=== PATIENT | male | born 1945 | race Caucasian/White ===

== ENCOUNTER 2025-06-14 22:24 | Inpatient (IN) | payer OTHER, SELFPAY ==
[2025-06-14 18:29] VITALS: BP 178/109
[2025-06-14 20:25] VITALS: BMI 29.2
[2025-06-14 20:26] VITALS: BP 168/99
[2025-06-14 20:38] LABS: Hematocrit 41.5 % (39.0-52.0); Hemoglobin 13.8 g/dL (13.0-18.0); Mean Corp Hgb Conc. 33.3 g/dL (33.0-37.0); Mean Corpuscular Volume 86.8 fL (80.0-94.0); Nucleated Red Blood Cells % 0 % (-); Platelet Count 216 10^3/uL (130-400); Red Cell Dist. Width 13.0 % (11.5-14.5)
[2025-06-14 20:54] LABS: ALT (SGPT) 35 U/L (0-50); AST (SGOT) 35 U/L (17-59); Albumin 4.4 g/dl (3.5-5.0); Alkaline Phosphatase 49 U/L (38-126); Blood Urea Nitrogen 22 mg/dl (9-20); Calcium 9.2 mg/dl (8.4-10.2); Carbon Dioxide 28 mmol/L (22-30); Chloride 104 mmol/L (98-107); Estimated Creatinine Clearance 62 ml/min; Glucose 98 mg/dl (70-99); Potassium 4.5 mmol/L (3.5-5.1); Sodium 138 mmol/L (135-145); Total Protein 7.6 g/dl (6.3-8.2); eGFR > 60.00
--- NOTE | 2025-06-14 21:03 | ED.GENMED ---
History of Present Illness
General
Chief Complaint: Skin Problem
Source: patient and spouse
Time Seen by Provider: 06/14/25 20:28
History of Present Illness
History of Present Illness:
79-year-old male presents to the emergency room complaining of pain, redness, swelling and open wound on his right hand. Patient began having redness and irritation to the area about 11 days ago. He had been doing some cleaning of brush in a yard
before that. The area began to become more red and swollen over the subsequent days. He went to his family doctor who prescribed Keflex. He did not have much improvement. About 3 to 4 days ago the pain was quite intense until he had spontaneous
drainage of pus from the wound. The pain has decreased significantly. However he has an open wound and his primary care doctor sent him to the emergency room for further evaluation. Patient denies any fever, chills, nausea or vomiting. Patient
is left-hand dominant.
Past History
Past History
ED Past Medical History: CAD, HTN, Hypercholesterolemia and Other (lung cancer,sleep apnea, diverticulosis, diverticulitis,prostatitis, pharynx, hypothyroidism)
ED Past Surgical History: Other (RLL lobectomy in 2007)
Social History
Personal:
Living: with family
Employment: Retired
Phy Exam
Physical Exam
Physical Exam:
General: Awake, Alert, Oriented X3. No acute distress.
Vitals: unremarkable
Head: Atraumatic
Eyes: Pupils equal, EOMI
Throat: Airway intact, no exudates
Neck: Trachea midline
Lungs: Clear and equal b/l
Heart: Regular rate, no murmurs
Neuro: Grossly nonfocal
Skin: Warm, dry, no rash
Right upper extremity: Dorsal surface over the proximal phalanx has a ulcerated wound with surrounding erythema, fluctuance. I was able to express a small amount of purulence with compression. There was some devitalized superficial skin which was
debrided from around the wound. Flexion is intact.
Course
Orders/Labs/Results
Orders:
Orders
06/14/25 20:28
Complete Blood Count/With Diff Urgent
Comprehensive Metabolic Panel Urgent
06/14/25 21:00
Hand, Right 3 View [CR Hand - Right Min 3 Views] Urgent
Comment:
Reason For Exam: pain, swelling
06/14/25 21:43
Vancomycin [Vancocin] 2,000 mg 0.9% Sodium Chloride 500 ml [Nss] 500 ml IV NOW
06/14/25 21:56
Wound Culture [Wound/Abscess/Other Culture] Urgent
PELON Source: Finger
Specimen Description: Right
Date Specimen was Collected: 06/14/25
Time Specimen was Collected: 21:45
06/14/25 22:00
Ampicillin/Sulbactam 3 G [Unasyn] 3 gm 0.9% Sodium Chloride 100 ml [Nss] 100 ml IV Q6H
06/14/25 22:09
Admit/Transfer Patient As Directed
Co-Sign Provider:
Level of Care: Inpatient admission
Assign to:: Medical/Surgical
Physician / Group: Ashley Patel
Diagnosis: ulcerating wound
Reason for Hospitalization: ulcerating wound
Expected length of stay greater than two midnights?: Yes
ELOS- Estimated Length of Stay in days: 3
I certify the patient meets the requirements for IP care: Yes
PRN Pain Medication Management As Directed
May give lesser potent ordered pain med per pt: Yes
preference::
Protocol:: Medication orders for pain may be administered in a
manner that supports deferring to patient preference
when the pt is:
- Requesting an ordered lesser potent pain medication.
Least to most potent pain medications are defined
as: acetaminophen < NSAID < tramadol < opioids
(morphine, oxycodone, hydromorphone).
- Requesting a lesser dose of the same medication IF
ORDERED.
- Requesting a less intrusive route of administration
if both routes are prescribed by the provider (PO <
IV).
06/14/25 22:10
Code Status As Directed
Resuscitation Status: Full Code
06/15/25 00:24
Acetaminophen [Tylenol] 650 mg PO Q4HPRN PRN
Bisacodyl [Dulcolax] 10 mg RECTAL [id number] PRN
Docusate W/Senna [Senokot-S] 1 tablet PO BIDPRN PRN
HYDROmorphone [Dilaudid] 0.5 mg IV Q4HPRN PRN
Ketorolac [Toradol] 10 mg IV Q6HPRN PRN
Polyethylene Glycol Powder [Miralax] 17 grams PO DAILYPRN PRN
VANCOMYCIN Pharmacy to Dose [VANCOCIN Pharmacy to Dose] 1 each Pharmacy To Prepare [Call Pharmacy To Prepare] 0 ml IV PER PROTOCOL
06/15/25 00:24
Consult Orthopedic [ORTHOPEDIC CONSULT] Routine
Consulting Provider: Angel Pringle
Was physician already notified: Yes
Activity As Directed
Activity Level: As Tolerated
Pneumatic Compression Sleeves As Directed
Type: Knee high
Vital Signs As Directed
Frequency: Per unit guidelines
DX Deep Vein Thrombosis Video Routine
06/15/25 Breakfast
NPO
Allow oral meds: Yes
Allow clear liquids: No
Basic Metabolic Panel IN AM
Complete Blood Count/With Diff IN AM
Magnesium IN AM
MR Right Up Ext Joint W/o W IN AM
Comment:
Reason For Exam: distal right 3rd digit wound
Recent pill cam endoscopy?: No
06/15/25 08:00
0.9% Sodium Chloride 1000 ml [Nss] 1,000 ml IV 80 mls/hr
Levothyroxine [Synthroid] 75 mcg PO DAILY
Losartan [Cozaar] 25 mg PO DAILY
Montelukast Sodium [Singulair] 10 mg PO DAILY
aspirin 81 mg PO DAILY
rosuvastatin [Crestor] 40 mg PO DAILY
06/15/25 Dinner
Regular
Abnormal Lab Results
06/14/25
20:28
Absolute Lymphs (auto) 0.9 L 10^3/uL
(1.2-3.4)
Lymphocytes % 15.6 L %
(20.5-51.1)
Monocytes % 11.2 H %
(1.7-9.3)
BUN 22 H mg/dl
(9-20)
06/14/25 20:28
06/14/25 20:28
Vital Signs
Initial and Last Documented VS:
Initial Vital Signs
Temp Pulse Resp BP Pulse Ox
98.1 F 110 20 178/109 95
06/14/25 18:29 06/14/25 18:29 06/14/25 18:29 06/14/25 18:29 06/14/25 18:29
Last Documented Vital Signs
Temp Pulse Resp BP Pulse Ox
98.1 F 110 20 165/94 96
06/14/25 18:29 06/14/25 18:29 06/14/25 18:29 06/15/25 00:00 06/15/25 00:00
MDM/Problems Addressed
Differential Diagnosis Includes:
Residual abscess cellulitis, osteomyelitis
MDM/Problems Addressed:
Patient presents to the emergency room with a fairly significant wound of the right middle finger. He had spontaneous drainage at home. I probed the wound is able to express further purulence. I also debrided some devitalized skin around the
edges of the wound. I communicated with hand surgery who recommends hospitalization for MRI and debridement of the wound.
*Radiology
Radiology exam reviewed: preliminary read by ED provider (No foreign body noted on my review of the patient's hand x-ray)
*Pulse Oximetry
SaO2: 96
Oxygen Mode of Delivery: Room air
Patient hypoxic: no
*Critical Care Note
Total Time (30-74mins, 75-104mins- exclusive of procedures): Not Applicable
ED Attending Note
-
Portions of this chart may have been created with voice recognition software.� Occasional wrong word or��sound alike� substitutions may have occurred due to the inherent limitations of voice recognition software.
Discharge Plan
Departure
Patient Disposition: Admit
Date of Disposition: 06/14/25
Time of Disposition: 21:21
Presentation/result/management discussed w/ accepting MD/DO: Hospitalist
Condition: Fair
Discharge Problem:
Abscess of middle finger, Cellulitis of middle finger
Interventions
Interventions:
*Risk Screen - Suicide Last Done: 06/14/25 18:29
*General Assessment Last Done: 06/14/25 20:16
*Neglect/Abuse Screening Last Done: 06/14/25 18:29
*ED- Fall Risk Assessment Last Done: 06/14/25 20:16
*ED COVID-19 Vaccine History Last Done: 06/14/25 20:16
*ED Influenza Vaccine History Last Done: 06/14/25 20:16
*Nursing Disposition Last Done: 06/15/25 00:15
ED-Skin Assessment Last Done: 06/14/25 20:16
Discharge Date and Time
Discharge Date/Time: 06/15/25 00:15
--- NOTE | 2025-06-14 21:35 | HPS.HSE ---
Family Physician
-
Family Physician: Brad Polanco
Chief Complaint
-
right middle finger infection
History of Present Illness
Mr. Harish Ni is a 79 yo man with hx CAD, HTN, HLD, hypothyroidism, lung cancer s/p RLL lobectomy 2007, JANET presents to the ER with pain, swelling and open wound on his right hand.
Patient was cleaning his yard 11 days ago when noticed redness and irritation to area. It became more red and swollen over the next several days and he was prescribed Keflex by PCP. Pain continued to progress and he noticed spontaneous drainage of
pus from the wound 3-4 days ago. He was then sent to the ER from his PCP.
Patient currently denies pain, he states it was much relieved when starting draining. No fevers/chills.
No chest pain or shortness of breath. No abdominal pain. No nausea/vomiting. No LE swellign
Medical History
Past Medical History
Past Medical History: Reports Other ( CAD, HTN, HLD, hypothyroidism, lung cancer s/p RLL lobectomy 2007, JANET)
Past Surgical History: Reports Other
Social History
Tobacco: Non-smoker
Alcohol: Occasional
Family History
Family History: Not pertinent
Allergies / Home Medications
Allergies reflects when Allergies were last updated in [facility].
Home Medications with original date entered in [facility]
Allergy/Medication List:
Allergies
Allergy/AdvReac Type Severity Reaction Status Date / Time
No Known Allergies Allergy Verified 06/14/25 18:29
Home Medications
aspirin 81 mg tablet 81 mg PO DAILY 06/14/25
levothyroxine 75 mcg tablet (Levoxyl) 75 mcg PO DAILY 06/14/25
losartan 25 mg tablet 25 mg PO DAILY 06/14/25
montelukast 10 mg tablet (Singulair) 10 mg PO DAILY 06/14/25
rosuvastatin 40 mg tablet (Crestor) 40 mg PO DAILY 06/14/25
Review of Systems
-
History Source: Patient
A 12 point ROS was completed and negative except as noted: Yes
Physical Exam
Vital Signs
Vital Signs
Temp Pulse Resp BP Pulse Ox
98.1 F 110 20 168/99 96
06/14/25 18:29 06/14/25 18:29 06/14/25 18:29 06/14/25 20:26 06/14/25 21:06
Physical Exam
General: No Apparent Distress
HEENT: PERRLA
Respiratory: Clear; No Wheezes
Cardiac: S1/S2 and Regular Rhythm
GI: Soft and Non Tender
Musculoskeletal: No Edema and Other (right hand wrapped; photo with ulcerating wound base 3rd digit surrounded by erythema)
Skin: Warm and Dry; No Rash
Neuro: AO x 3
Psych: Calm
Laboratory Results
-
06/14/25 20:28
06/14/25 20:28
Laboratory Results
Total Bilirubin 0.5 mg/dl (0.2-1.3) 06/14/25 20:28
AST 35 U/L (17-59) 06/14/25 20:28
ALT 35 U/L (0-50) 06/14/25 20:28
Alkaline Phosphatase 49 U/L (38-126) 06/14/25 20:28
Data Reviewed
-
Diagnostic Radiology: Report Reviewed by me
Lab Data: Labs Reviewed by me
Impression/Plan
-
Mr. Harish Ni is a 79 yo man with hx CAD, HTN, HLD, hypothyroidism, lung cancer s/p RLL lobectomy 2007, JANET presents to the ER with pain, swelling and open wound on his right hand.
Triage VS: T 98.1, P 110, RR 20, BP 170/109, SpO2 95%
LABS: WBC 5.6, Hg 13.8, PLT 216, Na 138, K+ 4.5, CO2 28, BUN 22, Cr 1.0, Glucose 98, liver enzymes WNL
MAR: IV Vancomycin
Wound on right 3rd digit
-admit to med/surg
-patient did not improved on outpatient oral antibiotics, meets inpatient criteria
-case discussed with Dr. Pringle and Himanshu by ER attending, consult in for AM
-MR right hand with/ without in AM
-IV Vanc/Unasyn
-follow up cultures taken in ER
-NPO after MN, unclear timing of debridement
HLD - CELLOPHANE TESTER Statin
Hypothyroidism - CELLOPHANE TESTER Synthroid
Essential HTN - CELLOPHANE TESTER Losartan
DVT PPx SCD
FULL CODE
[2025-06-14] MEDS: VANCOCIN 540 MG IV (22:01)
[2025-06-14 22:04] VITALS: BP 165/98
[2025-06-15] VITALS (13 sets, daily range): BP systolic 137–172; BP diastolic 77–104; BMI 27.7
[2025-06-15] MEDS: UNASYN IV ×5 (00:37→21:36)
[2025-06-15] MEDS: SYNTHROID 75 MCG PO (06:04)
--- NOTE | 2025-06-15 07:51 | W.PN.HOSP.TC ---
Addendum entered and electronically signed by Evin Khan MD 06/15/25 13:44:
Seen and examined the patient with the resident. Agree with plan formulated. See changes in my documentation
79-year-old male with middle finger ulceration. He was cleaning his yard 11 days ago and noticed redness and irritation became more swollen later. Was prescribed Keflex but it continued to progress and there was drainage 3 to 4 days ago.
X-ray of the hand-soft tissue swelling
Right third digit dorsal area with 2 separate areas of ulceration mild edema, patient cannot flex that finger. Complete extension noted
# Ulceration of the third digit on the right hand
Failed outpatient treatment
MRI of the hand -NO OM, has possible FB
Continue IV antibiotics currently on vancomycin and Unasyn
Follow-up cultures
Possibly needs OR
Orthopedics consulted
For possible OR today
# Hypothyroidism-continue levothyroxine
# Hyperlipidemia-continue statin
# Hypertension-continue losartan
# History of lung cancer with history of right lower lobectomy in the past-followed with [facility]
# Sleep apnea
# Diverticulosis
# History of melanoma
# DVT prophylaxis-Lovenox
# Full code
Part of this note was created using voice recognition system. Occasional wrong word or��sound alike� substitutions may have inadvertently occurred due to the inherent limitations of voice recognition software. If noted kindly bring it to my
attention for correction.
Original Note:
Today's Communication/Plan
-
Tetanus shot today
Continue antibiotics
Follow cultures
Assessment / Plan
Assessment / Plan
Wound on right 3rd digit
Right Third Digit Wound Of Unknown Origin
-Patient with wound of the right third digit approximately 2 inches in length with associated erythema and edema of the joint, two separate 1cm areas of drainage of pus and blood
-Patient had taken Keflex outpatient without improvement
-X-ray on admission: Soft tissue swelling. No evidence for soft tissue air. No evidence for radiopaque foreign body. No evidence for bony destruction, with no findings to suggest osteomyelitis.
-MRI today: Soft tissue wound of the dorsal proximal third finger with surrounding cellulitis. No MRI evidence for osteomyelitis or septic arthritis. Tiny presumed foreign body with susceptibility artifact in the dorsal soft tissues of the third
finger at the level of the proximal interphalangeal joint.
-Limited flexion noted on physical exam
-Continue IV Vancomycin, IV Unasyn
-Continue to follow cultures
-Orthopedics is following, will appreciate their insight into his case. Spoke to the via TT based on results of MRI. Patient will be kept NPO with likely visit to OR today.
-Ordered Tetanus shot today
-Will monitor
Coronary artery disease
Hyperlipidemia
-Continue Statin therapy
Essential Hypertension
-Continue Losartan
-Monitor blood pressures over the day. If his BP remains high, consider PRN IV Hydralazine for SBP >160
-Will monitor
Hypothyroidism
-Continue home dose of Synthroid
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
-Follows with [facility]
Obstructive sleep apnea
Anticipated Discharge: 24 - 48 hours
Subjective/Interval History
-
Date of Service: June 15, 2025
Patient was sitting comfortably in his bed when I arrived. He believes that his wound might be the result of a spider bite, as it had started as two small black dots on his hand. He has not had any pain since it began to weep pus and blood a few
days prior. He does not remember the exact date of his last tetanus shot, but when informed the last record we have in 2005, he stated, 'That sounds right.'
Objective Data
-
Labs:
Laboratory Results
06/14/25 06/15/25
20:28 07:37
WBC 5.6 Pending
Hgb 13.8 Pending
Hct 41.5 Pending
Plt Count 216 Pending
Sodium 138 Pending
Potassium 4.5 Pending
Chloride 104 Pending
Carbon Dioxide 28 Pending
BUN 22 H Pending
Creatinine 1.0 Pending
Glucose 98 Pending
Calcium 9.2 Pending
Total Bilirubin 0.5
AST 35
ALT 35
Alkaline Phosphatase 49
Vital Signs:
Vital Signs
Temp Pulse Resp BP Pulse Ox
97.6 F 109 12 172/104 95
06/15/25 00:10 06/15/25 00:10 06/15/25 00:10 06/15/25 00:10 06/15/25 00:10
I&O
06/14/25 06/15/25 06/16/25
06:59 06:59 06:59
Intake Total 240 / 240
Balance 240 / 240
Review of Systems
-
History Source: Patient
Constitutional: Denies Fever, Chills or Weakness
Respiratory: Denies Cough or Trouble Breathing
Cardiac: Denies Chest Pain or Palpitations
Abdomen/GI: Denies Abdominal Pain, Nausea, Vomiting, Diarrhea or Constipated
Musculoskeletal: Reports Joint Swelling (Right hand); Denies Joint Pain or Muscle Pain
Skin: Reports Other (Lesion of right hand over the middle finger, no other lesions); Denies Itching
Neuro: Denies Dizzy, Headache, Weakness or Numbness
Physical Exam
-
General: Well Developed, Well Nourished, No Apparent Distress and Comfortable
HEENT: Normocephalic and Atraumatic
Respiratory: Clear to Auscultation
Cardiac: Regular Rhythm and S1/S2
Musculoskeletal: Other (Limited flexion of right middle finger when compared to the left and surrounding fingers. No significant impairment of extension)
Skin: Warm, Dry and Lesions (There is an area of erythema overlying the right middle finger near the base of the finger and extending up into the digit. There are two areas approximately 1cm each of drainage of pus and blood. There is some
associated skin dryness near the borders of this ulcerating lesion with peeling skin.)
Neuro: Awake, Alert and Oriented
Psych: Calm
[2025-06-15 08:16] LABS: Hematocrit 39.5 % (39.0-52.0); Hemoglobin 13.3 g/dL (13.0-18.0); Mean Corp Hgb Conc. 33.7 g/dL (33.0-37.0); Mean Corpuscular Volume 87.8 fL (80.0-94.0); Nucleated Red Blood Cells % 0 % (-); Platelet Count 218 10^3/uL (130-400); Red Cell Dist. Width 12.9 % (11.5-14.5)
--- NOTE | 2025-06-15 09:10 | W.PN.UPDATE ---
Update Note
Progress Note Update
Full H&P to follow
79-year-old male admitted for chronic ulceration of the dorsal aspect overlying his middle finger recommended for inpatient admission for consideration of IV antibiotics and operative debridement. X-rays were performed without any significant
osseous abnormality suggest ongoing osteomyelitis. Patient reports slight improvement of his symptoms today.
Recommended MRI which is pending today for evaluation of possible osteomyelitis and any surgical decompression that may be recommended. Cultures were obtained in the ER.
Pending MRI results for further consideration of operative invention if necessary versus broad-spectrum antibiotics pending cultures and possible wound care consult. Will continue to follow pending MRI results
Unlikely for OR today- may have diet, NPO @ MN potentially for OR tomorrow
[2025-06-15 09:12] LABS: Blood Urea Nitrogen 17 mg/dl (9-20); Calcium 8.9 mg/dl (8.4-10.2); Carbon Dioxide 23 mmol/L (22-30); Chloride 105 mmol/L (98-107); Estimated Creatinine Clearance 91 ml/min; Glucose 92 mg/dl (70-99); Magnesium 2.1 mg/dl (1.6-2.3); Potassium 4.2 mmol/L (3.5-5.1); Sodium 137 mmol/L (135-145); eGFR > 60.00
--- NOTE | 2025-06-15 09:16 | PHA.VAN.IN ---
Assessment
- Assessment
Renal Function: Appears similar to baseline
Maximum Temperature: 98.2F
Minimum Temperature: 97.6F
Concomitant Antimicrobials: Unasyn
AUC Dosing Plan
- Dosing Variables
Dosing Weight (kg): 92.7
Dosing CrCl (ml/min): 91
Vd coefficient (L/kg): 0.7
- Empiric Dosing
Initial / Loading Dose: 2000MG
Maintenance Regimen: 1250MG Q12H
Estimated AUC (mcg*h/mL): 511
Estimated Peak (mcg*h/mL): 31.2
Estimated Trough (mcg/ml): 13.5
Estimated Half Life (H): 8.7
- Monitoring
No levels ordered at this time: Awaiting steady state
Pharmacokinetics Vancomycin I
- -
Patient Age: 79
Patient Sex: Male
Vancomycin Day #: 2
Indication: Skin And Soft Tissue
Requesting Provider: Jorge
Pertinent Antimicrobial Allergies:
NKDA
Height / Weight:
Height 6 ft
Actual Weight 92.714 kg
Pertinent Past Medical History: Keflex failure
- Vital Signs / Lab Results
Temp Pulse Resp BP Pulse Ox
98.2 F 98 16 167/103 93
06/15/25 07:00 06/15/25 07:00 06/15/25 07:00 06/15/25 07:00 06/15/25 07:00
Lab Results - Hematology
06/14/25 06/15/25
20:28 07:37
WBC 5.6 5.2
Lab Results - Chemistry
06/14/25 06/15/25
20:28 07:37
BUN 22 H 17
Creatinine 1.0 0.7
Estimated Creat Clear 62 91
Albumin 4.4
[2025-06-15] MEDS: ASPIR LOW (ENTERIC COATED) 81 MG PO (10:23)
[2025-06-15] MEDS: SINGULAIR 10 MG PO (10:23)
[2025-06-15] MEDS: CRESTOR 40 MG PO (10:23)
[2025-06-15] MEDS: COZAAR 25 MG PO (10:26)
[2025-06-15] MEDS: NSS 1000 IV ×2 (10:26→19:56)
[2025-06-15] MEDS: VANCOCIN 275 MG IV ×2 (11:49→19:55)
[2025-06-15] MEDS: ADACEL 0.5 ML IM (13:07)
--- NOTE | 2025-06-15 18:27 | W.IMMPOSTOP ---
Surgical Immed Post Op Note
-
Primary Surgeon: Yary
Pre-op Diagnosis: Right hand infection
Post-op Diagnosis: Same
Procedure Performed: Right hand incision and excisional debridement
Anesthesia Type: General
Specimen / Cultures: Right hand purulence
Estimated Blood Loss: 2cc
Complications: None
Operative Findings: Dictate
Plan:
- Continue with IV abx
- Follow culture results
- Remove packing in 2-3 days
[2025-06-15] MEDS: DILAUDID 0.25 MG IV (19:02)
[2025-06-15] MEDS: LOVENOX 40 MG SC (19:49)
--- NOTE | 2025-06-15 20:39 | CON.ORTHO ---
Consultation
-
Date/Time Consultation Requested: 06/15/2025 0024
Date/Time Consultation Performed: 06/15/2025 0745
Requesting Provider: Dr. Ashley Patel
Performing Provider: DURGA Odell, Dr. Angel Pringle
Reason for Consultation: Right hand wound/infection
Consultation - Orthopedics
History
79-year-old [id number] male presenting to [facility] emergency room with pain and swelling and open wound about his dorsum of his right hand. Symptoms began approximately 12 days ago when he noticed redness and irritation after doing yard
work. His symptoms progressively worsened and refractory towards outpatient antibiotics when he started to develop spontaneous drainage and purulence several days ago. He reports pain is relatively tolerable at this timeframe, denies any
associated paresthesias or fevers or chills
Allergies / Home Medications
Past Medical History
Past Medical History: Reports Other ( CAD, HTN, HLD, hypothyroidism, lung cancer s/p RLL lobectomy 2007, JANET)
Past Surgical History: Reports Other
Social History
Tobacco: Non-smoker
Alcohol: Occasional
Family History
Family History: Not pertinent
Allergy/AdvReac Type Severity Reaction Status Date / Time
No Known Allergies Allergy Verified 06/14/25 18:29
�Medication �Instructions �Recorded
aspirin 81 mg tablet 81 mg PO DAILY Blood Clot 06/14/25
Prevention/Tx
levothyroxine 75 mcg tablet 75 mcg PO DAILY Thyroid 06/14/25
(Levoxyl)
losartan 25 mg tablet 25 mg PO DAILY Blood Pressure 06/14/25
montelukast 10 mg tablet 10 mg PO DAILY ASTHMA 06/14/25
(Singulair)
rosuvastatin 40 mg tablet (Crestor) 40 mg PO DAILY High Cholesterol 06/14/25
Vital Signs / Lab Results
Temp Pulse Resp BP Pulse Ox
97 F 93 15 165/94 98
06/15/25 19:10 10/08/25 19:38 06/15/25 19:15 06/15/25 19:38 06/15/25 19:38
PHYSICAL EXAM: Focused examination of the right upper extremity at the level of the hand shows extensive superficial wound without exposed deep tissue overlying the middle MP slightly distal from the joint and overlying the proximal aspect of the
proximal phalanx. There is surrounding eschar and friable skin edges with erythematous surrounding skin. There is no specific effusion of the MP or PIP joint and erythema is limited proximal to the PIP joint.. No pain with gentle passive range of
motion. Distal sensation and motor function intact.
IMAGING: X-rays taken of the right hand showed mild soft tissue swelling to the dorsum of the middle finger proximally. No soft tissue air. No foreign bodies. No evidence of osteomyelitis. Mild chronic degenerative changes
MRI completed of the right upper extremity shows soft tissue wound slightly distal of the middle MP joint with questionable possible foreign body to the dorsum of the soft tissues close to the PIP joint.
06/15/25 07:37
06/15/25 07:37
Cultures obtained the emergency room show few gram-positive cocci but potentially polymicrobial from superficial collection.
Assessment / Plan
79-year-old male with nearly 2 weeks of superficial infection overlying the dorsum of the middle MP joint refractory towards outpatient antibiotics and progressing of symptoms with unremarkable radiographs and MRI concerning for possible associated
foreign body
- At time of MRI completion patient was recommended for operative intervention either today versus tomorrow pending OR availability; patient was n.p.o. today. Plan for surgery on 06/15/2025 for right hand wound debridement irrigation Dr. Pringle and
possible removal of foreign body
[2025-06-16] MEDS: TYLENOL 650 MG PO ×3 (03:01→19:34)
[2025-06-16] MEDS: UNASYN IV ×4 (03:48→21:58)
[2025-06-16] MEDS: SYNTHROID 75 MCG PO (05:34)
[2025-06-16] MEDS: VANCOCIN 275 MG IV ×2 (05:35→18:11)
[2025-06-16 06:00] LABS: Hematocrit 39.8 % (39.0-52.0); Hemoglobin 13.3 g/dL (13.0-18.0); Mean Corp Hgb Conc. 33.4 g/dL (33.0-37.0); Mean Corpuscular Volume 86.9 fL (80.0-94.0); Platelet Count 216 10^3/uL (130-400); Red Cell Dist. Width 12.9 % (11.5-14.5)
[2025-06-16 07:06] LABS: Blood Urea Nitrogen 17 mg/dl (9-20); Calcium 8.6 mg/dl (8.4-10.2); Carbon Dioxide 26 mmol/L (22-30); Chloride 104 mmol/L (98-107); Estimated Creatinine Clearance 69 ml/min; Glucose 134 mg/dl (70-99); Potassium 4.5 mmol/L (3.5-5.1); Sodium 138 mmol/L (135-145); eGFR > 60.00
--- NOTE | 2025-06-16 07:16 | W.PN.HOSP.TC ---
Addendum entered and electronically signed by Evin Khan MD 06/16/25 14:14:
Seen and examined the patient with the resident. Agree with plan formulated. See changes in my documentation
79-year-old male with middle finger ulceration. He was cleaning his yard 11 days ago and noticed redness and irritation became more swollen later. Was prescribed Keflex but it continued to progress and there was drainage 3 to 4 days ago.
X-ray of the hand-soft tissue swelling
Right hand bandaged POst op
Other exam normal
# Ulceration of the third digit on the right hand
Failed outpatient treatment
MRI of the hand -NO OM, has possible FB
Right hand incision and excisional debridement. 06/15/2025
Continue IV antibiotics currently on vancomycin and Unasyn
Follow-up OR cultures
Wound CX with MRSA
# Hypothyroidism-continue levothyroxine
# Hyperlipidemia-continue statin
# Hypertension-continue losartan
# History of lung cancer with history of right lower lobectomy in the past-followed with [facility]
# Sleep apnea
# Diverticulosis
# History of melanoma
# DVT prophylaxis-Lovenox
# Full code
Part of this note was created using voice recognition system. Occasional wrong word or��sound alike� substitutions may have inadvertently occurred due to the inherent limitations of voice recognition software. If noted kindly bring it to my
attention for correction.
Original Note:
Today's Communication/Plan
-
Continue to follow cultures
Move to private room as culture preliminary positive for MRSA
Assessment / Plan
Assessment / Plan
Wound on right 3rd digit
Right Third Digit Wound Of Unknown Origin
Presumptive MRSA Infection
-Patient with wound of the right third digit approximately 2 inches in length with associated erythema and edema of the joint, two separate 1cm areas of drainage of pus and blood
-Patient had taken Keflex outpatient without improvement
-X-ray on admission: Soft tissue swelling. No evidence for soft tissue air. No evidence for radiopaque foreign body. No evidence for bony destruction, with no findings to suggest osteomyelitis.
-MRI 06/15: Soft tissue wound of the dorsal proximal third finger with surrounding cellulitis. No MRI evidence for osteomyelitis or septic arthritis. Tiny presumed foreign body with susceptibility artifact in the dorsal soft tissues of the third
finger at the level of the proximal interphalangeal joint.
-S/p Tetanus shot on 06/15
-Patient was taken to the OR on 06/[address] Pringle, Post op day 1 today. Wound culture preliminary positive for MRSA
-Limited flexion noted on physical exam from 06/15, currently hand is bandaged any cannot assess movement
-Continue IV Vancomycin, IV Unasyn
-Continue to follow cultures, will follow for sensitivity on positive MRSA culture
-Will monitor
Coronary artery disease
Hyperlipidemia
-Continue Statin therapy
Essential Hypertension
-Continue Losartan
-Monitor blood pressures over the day. If his BP remains high, consider PRN IV Hydralazine for SBP >160
-Will monitor
Hypothyroidism
-Continue home dose of Synthroid
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
-Follows with [facility]
Obstructive sleep apnea
Anticipated Discharge: 24 - 48 hours
Subjective/Interval History
-
Date of Service: June 16, 2025
Patient was sitting comfortably in his bed when I arrived. He states he has had more pain post operatively than he did preoperatively, but it is 'as he expected' and manageable. He has no fevers, chills, chest pain, shortness of breath. He is
overall in good spirits today with no concerns.
Objective Data
-
Labs:
Laboratory Results
06/16/25
05:34
WBC 7.7
Hgb 13.3
Hct 39.8
Plt Count 216
Sodium 138
Potassium 4.5
Chloride 104
Carbon Dioxide 26
BUN 17
Creatinine 0.9
Glucose 134 H
Calcium 8.6
Vital Signs:
Vital Signs
Temp Pulse Resp BP Pulse Ox
97.6 F 102 16 148/86 97
06/15/25 23:00 06/15/25 23:00 06/15/25 23:00 06/15/25 23:00 06/15/25 23:00
I&O
06/15/25 06/16/25 06/17/25
06:59 06:59 06:59
Intake Total 240 / 240 1208 / 1208
Output Total 673 / 673
Balance 240 / 240 535 / 535
Review of Systems
-
History Source: Patient
Constitutional: Denies Fever, Fatigue or Chills
Respiratory: Denies Cough or Trouble Breathing
Cardiac: Denies Chest Pain or Palpitations
Abdomen/GI: Denies Abdominal Pain, Nausea, Vomiting, Diarrhea or Constipated
Musculoskeletal: Reports Joint Pain (See HPI) and Muscle Pain (See HPI)
Physical Exam
-
General: Well Developed, Well Nourished, No Apparent Distress and Comfortable
HEENT: Normocephalic and Atraumatic
Respiratory: Clear to Auscultation
Cardiac: Regular Rhythm and S1/S2
Skin: Warm, Dry and Other (The right hand is wrapped in a large ac bandage from the fingers to the forearm. It is clean and free of blood)
Neuro: Awake, Alert and Oriented
Psych: Calm
--- NOTE | 2025-06-16 07:47 | W.PN.UPDATE ---
Update Note
Progress Note Update
The patient was seen and examined by Orthopedic surgery on rounds. POD #1 RIGHT hand incision and excisional debridement performed on 06/15/[address] Pringle. Continue with IV antibiotics; currently on Vancomycin and Unasyn. Will
remove packing on Friday. Pre-operative preliminary Gram stain with few gram-positive cocci. Intra-operative cultures pending, continue to follow. Orthopedic surgery will continue to follow along.
[2025-06-16 08:05] VITALS: BP 147/89
[2025-06-16] MEDS: SINGULAIR 10 MG PO (08:19)
[2025-06-16] MEDS: ASPIR LOW (ENTERIC COATED) 81 MG PO (08:19)
[2025-06-16] MEDS: CRESTOR 40 MG PO (08:19)
--- NOTE | 2025-06-16 09:20 | PHA.VAN.FU ---
Vancomycin Assessment / Plan
- Assessment
Renal Function: Stable
WBC's are: WNL
In the past 24 hrs, patient has been: Afebrile
Concomitant Antimicrobials: ampicillin/sulbactam
- Dosing Plan
Continue: Vanc 1250mg Q12H
- Monitoring Plan
No level(s) ordered at this time: consider levels in next few days
- Follow Up
Pharmacy will continue to follow.
Vancomycin Follow UP
- -
Patient Age: 79
Patient Sex: Male
Vancomycin Day #: 3
Indication: Skin And Soft Tissue
Requesting Provider: Dr. Patel
Pertinent Antimicrobial Allergies:
NKDA
Height / Weight:
Height 6 ft
Actual Weight 92.714 kg
Pertinent Past Medical History: BMI 28
- Vital Signs / Lab Results
Temp Pulse Resp BP Pulse Ox
98 F 98 14 147/89 97
06/16/25 08:05 06/16/25 08:05 06/16/25 08:05 06/16/25 08:05 06/16/25 08:05
Lab Results - Hematology
06/14/25 06/15/25 06/16/25
20:28 07:37 05:34
WBC 5.6 5.2 7.7
Lab Results - Chemistry
06/14/25 06/15/25 06/16/25
20:28 07:37 05:34
BUN 22 H 17 17
Creatinine 1.0 0.7 0.9
Estimated Creat Clear 62 91 69
Albumin 4.4
Microbiology Results
06/14/25 21:56 Gram Stain - Preliminary
Finger - Right
[2025-06-16 11:07] VITALS: BP 143/91
[2025-06-16] MEDS: NSS IV (11:12)
[2025-06-16] MEDS: COZAAR 25 MG PO (11:16)
--- NOTE | 2025-06-16 14:10 | PTCARENOTE ---
Patient with + MRSA results from L hand 3rd finger wound. Moved to room 331 aware.
[2025-06-16 15:24] VITALS: BP 138/71
--- NOTE | 2025-06-16 16:41 | CM ---
Pt admitted with infected finger; R hand I&D yesterday. Currently on IV abx, +MRSA; packing to be removed tomorrow.
Anticipate discharge to home when medically stable, watch for VN needs.
Pt lives with his ; reports being (I) amb and adls.
Plan: Discharge to home; watch for IV abx needs at discharge.
[2025-06-16] MEDS: LOVENOX 40 MG SC (18:11)
[2025-06-16] MEDS: TORADOL 10 MG IV (22:42)
[2025-06-16 23:00] VITALS: BP 132/73
[2025-06-17] MEDS: UNASYN IV ×2 (03:10→09:15)
[2025-06-17] MEDS: VANCOCIN 275 MG IV (05:12)
[2025-06-17] MEDS: SYNTHROID 75 MCG PO (05:12)
[2025-06-17 06:33] LABS: Hematocrit 38.1 % (39.0-52.0); Hemoglobin 12.5 g/dL (13.0-18.0); Mean Corp Hgb Conc. 32.8 g/dL (33.0-37.0); Mean Corpuscular Volume 90.7 fL (80.0-94.0); Platelet Count 215 10^3/uL (130-400); Red Cell Dist. Width 13.1 % (11.5-14.5)
[2025-06-17 07:00] LABS: Blood Urea Nitrogen 19 mg/dl (9-20); Calcium 8.3 mg/dl (8.4-10.2); Carbon Dioxide 29 mmol/L (22-30); Chloride 107 mmol/L (98-107); Estimated Creatinine Clearance 69 ml/min; Glucose 116 mg/dl (70-99); Potassium 4.2 mmol/L (3.5-5.1); Sodium 140 mmol/L (135-145); eGFR > 60.00
--- NOTE | 2025-06-17 07:16 | W.PN.HOSP.TC ---
Addendum entered and electronically signed by Evin Khan MD 06/17/25 13:47:
Seen and examined the patient with the resident. Agree with plan formulated. See changes in my documentation
79-year-old male with middle finger ulceration. He was cleaning his yard 11 days ago and noticed redness and irritation became more swollen later. Was prescribed Keflex but it continued to progress and there was drainage 3 to 4 days ago.
X-ray of the hand-soft tissue swelling
Right hand sutures noted. No discharge or redness hand movements are better
Cardiovascular system S1-S2 appreciated
Chest clear to auscultation
# Ulceration of the third digit on the right hand
Failed outpatient treatment
MRI of the hand -NO OM, has possible FB
Right hand incision and excisional debridement. 06/15/2025
Got vancomycin earlier today
Cultures with MRSA sensitive to doxycycline
We will do 10 more days of doxycycline at discharge PELON less than 4
OR cultures also with MRSA
Discussed with orthopedics. They are okay with discharging patient today
# Hypothyroidism-continue levothyroxine
# Hyperlipidemia-continue statin
# Hypertension-continue losartan
# History of lung cancer with history of right lower lobectomy in the past-followed with [facility]
# Sleep apnea
# Diverticulosis
# History of melanoma
# DVT prophylaxis-Lovenox
# Full code
Discussed with orthopedics
Called and updated regarding outpatient follow-up needs.
I have consulted case management for visiting nurse but looks like family may want to take him to the appointments and not get a visiting nurse.
We will add wound care according to orthopedics resident to reach out
Total discharge time over 30 minutes
Part of this note was created using voice recognition system. Occasional wrong word or��sound alike� substitutions may have inadvertently occurred due to the inherent limitations of voice recognition software. If noted kindly bring it to my
attention for correction.
Original Note:
Today's Communication/Plan
-
Continue to follow cultures
Continue wound care
Discharge planning
Assessment / Plan
Assessment / Plan
Wound on right 3rd digit
Right Third Digit Wound with MRSA Infection
-Patient with wound of the right third digit approximately 2 inches in length with associated erythema and edema of the joint, two separate 1cm areas of drainage of pus and blood
-Patient had taken Keflex outpatient without improvement
-X-ray on admission: Soft tissue swelling. No evidence for soft tissue air. No evidence for radiopaque foreign body. No evidence for bony destruction, with no findings to suggest osteomyelitis.
-MRI 06/15: Soft tissue wound of the dorsal proximal third finger with surrounding cellulitis. No MRI evidence for osteomyelitis or septic arthritis. Tiny presumed foreign body with susceptibility artifact in the dorsal soft tissues of the third
finger at the level of the proximal interphalangeal joint.
-S/p Tetanus shot on 06/15
-Patient was taken to the OR on 06/[address] Pringle, Post op day 2 today. Wound culture positive for MRSA, sensitive for Doxycycline
-Limited flexion noted on physical exam from 06/15, currently hand is bandaged any cannot assess movement.
-Continue IV Vancomycin, plan to transition to PO Doxycycline 100mg BID for 10 additional days
-STOP IV Unasyn
-Will monitor
Coronary artery disease
Hyperlipidemia
-Continue Statin therapy
Essential Hypertension
-Continue Losartan
-Monitor blood pressures over the day. If his BP remains high, consider PRN IV Hydralazine for SBP >160
-Will monitor
Hypothyroidism
-Continue home dose of Synthroid
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
-Follows with [facility]
Obstructive sleep apnea
-Encouraged outpatient follow up
Anticipated Discharge: Within 24 hours
Subjective/Interval History
-
Date of Service: June 17, 2025
Patient was resting comfortably in his bed when I arrived. He states that his wound packing was removed earlier today, and that his hand is in less pain than it was yesterday. He continues to be free of fevers and chills. The swelling in his joint
has significantly reduced since yesterday.
Objective Data
-
Labs:
Laboratory Results
06/17/25
06:06
WBC 10.0
Hgb 12.5 L
Hct 38.1 L
Plt Count 215
Sodium 140
Potassium 4.2
Chloride 107
Carbon Dioxide 29
BUN 19
Creatinine 0.9
Glucose 116 H
Calcium 8.3 L
Vital Signs:
Vital Signs
Temp Pulse Resp BP Pulse Ox
97.9 F 102 18 132/73 97
06/16/25 23:00 06/16/25 23:00 06/16/25 23:00 06/16/25 23:00 06/16/25 23:00
I&O
06/16/25 06/17/25 06/18/25
06:59 06:59 06:59
Intake Total 1208 / 1208
Output Total 673 / 673
Balance 535 / 535
Review of Systems
-
History Source: Patient
Constitutional: Denies Fever, Fatigue or Chills
Respiratory: Denies Cough or Trouble Breathing
Cardiac: Denies Chest Pain
Abdomen/GI: Denies Abdominal Pain, Nausea, Vomiting, Diarrhea or Constipated
Musculoskeletal: Reports Joint Swelling (Reduced compared to yesterday)
Physical Exam
-
General: Well Developed, Well Nourished, No Apparent Distress and Comfortable
HEENT: Normocephalic and Atraumatic
Respiratory: Clear to Auscultation
Cardiac: Regular Rhythm and S1/S2
GI: Soft, Nontender, Nondistended and Normal Bowel Sounds
Musculoskeletal: Other (His right hand is wrapped in ac bandage from the fingers to a few inches below the wrist.)
Skin: Warm and Dry
Neuro: Awake, Alert and Oriented
Psych: Calm
[2025-06-17 07:54] VITALS: BP 141/86
--- NOTE | 2025-06-17 07:58 | W.PN.UPDATE ---
Update Note
Progress Note Update
The patient was seen and examined by Orthopedic surgery on rounds. POD #2 RIGHT hand incision and excisional debridement performed on 06/15/[address] Pringle. Continue with IV antibiotics; currently on Vancomycin and Unasyn. Intra
operative cultures are growing MRSA. Sensitivities currently pending. Will continue to follow sensitivities for transition of antibiotics for discharge. Post op dressing removed to reveal incisions to be well approximated. Packing removed
uneventfully. May begin warm water soaks with dilute hibiclens 3x/day 5-[address] dry dressing over incisions when soak not being performed. May work on ROM exercises now that splint is off. All questions were answered.
Orthopedic surgery will continue to follow along.
[2025-06-17] MEDS: ASPIR LOW (ENTERIC COATED) 81 MG PO (09:16)
[2025-06-17] MEDS: COZAAR 25 MG PO (09:16)
[2025-06-17] MEDS: SINGULAIR 10 MG PO (09:17)
[2025-06-17] MEDS: CRESTOR 40 MG PO (09:18)
--- NOTE | 2025-06-17 11:41 | W.DCSUMMARY ---
Discharge Summary
Discharge Data
Date of Admission: 06/14/25
Date of Discharge: 06/17/25
-
Pending Results: No
Hospital Course
Discharging Physician : Dr. Khan
Disposition : Good
Primary care physician : Dr. Brad Polanco
Principal Discharge diagnosis : Right Third Digit Wound with MRSA Infection
Chronic Discharge diagnosis : Coronary Artery Disease, Essential Hypertension, Hypothyroidism, History of Small Cell Lung Cancer, Obstructive Sleep Apnea
Hospital Course : This is an 79 y/o male with pmhx of coronary artery disease, essential hypertension, hypothyroidism, small cell lung cancer s/p chemotherapy and RLL lobectomy in 2007 and obstructive sleep apnea.
He presented to the ED on 06/14/2025 with swelling, pain and an open wound of his right hand. 11 days prior to this admission he had been cleaning his yard when he noticed redness and irritation of his hand, which progressed over the next several
days. He went to his PCP who prescribed him Keflex, but the pain continued to progress despite antibiotic therapy. Around 3-4 days prior to admission he also noted a spontaneous drainage of pus from his wound. He contacted his PCP again, and was
sent to the ED from his appointment.
In the ED his temperature was normal at 98.1, he was tachycardic at 110 and his blood pressure was elevated at 170/109. His WBC was normal at 5.6. Creatinine was normal at 1.0. X-ray of the hand showed soft tissue swelling with no evidence for soft
tissue air, no evidence for radiopaque foreign body, no evidence for bony destructions, no findings to suggest osteomyelitis. He was started on IV Vancomycin + Unasyn and orthopedic surgery was consulted for possible debridement. He was also given
PRN Dilaudid, Toradol and Tylenol for pain.
MRI of the hand on 06/15 showed possible foreign body. He was taken to the OR on the same day by orthopedic surgery for surgical debridement. Notably, a foreign body was not located during debriedment. Wound cultures at the time of surgery were
positive for MRSA. He was continued on IV antibiotics, and on 06/17 packing was removed from the surgical site. Sensitivities resulted on the same day revealing sensitivity to tetracyclines. He was found to be medially stable and discharged to home
with a prescription for PO Doxycycline 100mg BID for 10 additional days. He was instructed to follow up with his PCP in less than 1 week, and follow up with Orthopedic Surgery for outpatient management of his wound. Upon discharge he was instructed
to soak his hand in warm water with dilute hibiclens three times a day for 5-10 minutes at a time. When not soaking the wound he was instructed to place dry adaptive dressings over his sutures, followed by gauze, cling wrap, ac bandage. He was also
instructed to work on range of motion exercises and to avoid showers or getting his incisions wet until after he had followed up about suture removal
Important imaging findings :
X-ray of the hand on 06/14: Soft tissue swelling with no evidence for soft tissue air, no evidence for radiopaque foreign body, no evidence for bony destructions, no findings to suggest osteomyelitis.
MRI Upper Extremity 06/15: Soft tissue wound of the dorsal proximal third finger with surrounding cellulitis. No MRI evidence for osteomyelitis or septic arthritis. Tiny presumed foreign body with susceptibility artifact in the dorsal soft tissues of
the third finger at the level of the proximal interphalangeal joint.
Procedure findings :
N/a
Discharge Plan
-
Patient Disposition: Home (Routine Discharge)
Discharge Diagnosis/Procedures: Right Third Digit Wound with MRSA Infection
Coronary Artery Disease
Essential Hypertension
Hypothyroidism
History of Small Cell Lung Cancer
Obstructive Sleep Apnea
Condition: Good
Diet: No restrictions
Activity: No restrictions
Driving Restrictions: As prior to admission
Bathing Restrictions: None
Other Services: VN
Activity Restrictions/Additional Instructions:
Now that your packings have been removed from your wound, you may begin warm water soaks with dilute hibiclens. You can do this three times a day for 5-10 minutes at a time.
When you are not soaking the wound, you should place dry dressings back over the incisions to keep the area clean and dry. You should use adaptive dressings directly over the sutures, followed by gauze, then cling wrap, and finally an ac bandage.
Be sure not to wrap the dressing too tight. These are all purchasable at your local pharmacy.
You may also work on range of motion exercises now that your splint has been removed.
DO NOT take showers or get the incision area wet aside from soaking it until you have followed up with Orthopedics outside the hospital.
Referrals:
Brad Polanco MD [Family Provider, Family Practice] - in less than 1 week
Angel Pringle MD [Active, Orthopedics]
Additional Discharge Medication Instructions: We will be discharging you to home on a new medication. It is an antibiotic called Doxycycline. It is very important that you take it twice a day for 10 full days.
Prescriptions:
New
doxycycline hyclate 100 mg tablet
100 mg PO BID Qty: 20 0RF
Continued
levothyroxine [Levoxyl] 75 mcg Tablet
75 mcg PO DAILY
losartan 25 mg Tablet
25 mg PO DAILY
montelukast [Singulair] 10 mg Tablet
10 mg PO DAILY
aspirin 81 mg Tablet
81 mg PO DAILY
rosuvastatin [Crestor] 40 mg Tablet
40 mg PO DAILY
Discharge Orders:
Discharge Patient (As Directed); Ordered 06/17/25
Ordered By: Ekaterina Roman
Discharge Date and Time
Discharge Date/Time: 06/17/25 16:39
Print Language: LIBERIAN
--- NOTE | 2025-06-17 14:14 | PHA.VAN.FU ---
Vancomycin Assessment / Plan
- Assessment
Renal Function: Stable
WBC's are: WNL
In the past 24 hrs, patient has been: Afebrile
- Dosing Plan
Continue: Vanc 1250mg Q12H
- Monitoring Plan
No level(s) ordered at this time: discharge plans on doxy noted - no level since short course anticipated
- Follow Up
Pharmacy will continue to follow.
Vancomycin Follow UP
- -
Patient Age: 79
Patient Sex: Male
Vancomycin Day #: 4
Indication: Skin And Soft Tissue
Requesting Provider: Dr. Patel
Pertinent Antimicrobial Allergies:
NKDA
Height / Weight:
Height 6 ft
Actual Weight 92.714 kg
Pertinent Past Medical History: BMI 28
- Vital Signs / Lab Results
Temp Pulse Resp BP Pulse Ox
98.2 F 89 16 141/86 98
06/17/25 07:54 06/17/25 07:54 06/17/25 07:54 06/17/25 07:54 06/17/25 07:54
Lab Results - Hematology
06/14/25 06/15/25 06/16/25
20:28 07:37 05:34
WBC 5.6 5.2 7.7
06/17/25
06:06
WBC 10.0
Lab Results - Chemistry
06/14/25 06/15/25 06/16/25
20:28 07:37 05:34
BUN 22 H 17 17
Creatinine 1.0 0.7 0.9
Estimated Creat Clear 62 91 69
Albumin 4.4
06/17/25
06:06
BUN 19
Creatinine 0.9
Estimated Creat Clear 69
Albumin
Microbiology Results
06/15/25 18:25 Wound Culture - Preliminary
Hand - Right Staph aureus MRSA
Gram Stain - Preliminary
06/14/25 21:56 Wound Culture - Final
Finger - Right Staph aureus MRSA
Gram Stain - Final
06/15/25 18:25 Anaerobic Culture - Preliminary
Hand - Right Culture pending. Anaerobic cultures are examined after 3
days incubation. Additional information to follow.
[2025-06-17 14:34] VITALS: BP 152/88
--- NOTE | 2025-06-17 14:50 | CM ---
Patient ambulating in room plan is to home today, patient has declined visiting nurses. Physician made aware.
Plan; Home no needs.
== END 2025-06-17 16:39 | disposition home or self-care (01) | DRG 580 ==
LOC: 3 WEST ACU 22:24
PROVIDERS: Emergency Medicine; ADMITTING PHYSICIAN Student in an Organized Health Care Education/Training Program; ATTENDING PHYSICIAN Hospitalist; CONSULT PHYSICIAN Orthopaedic Surgery; EMERGENCY PHYSICIAN Emergency Medicine; FAMILY PHYSICIAN Family Medicine
PROC: 0JBJ0ZZ Excision of Right Hand Subcutaneous Tissue and Fascia, Open Approach (ICD-10-PCS; 2025-06-15)
DX: L03.011 Cellulitis of right finger (principal); I96 Gangrene, not elsewhere classified; E03.9 Hypothyroidism, unspecified; E78.00 Pure hypercholesterolemia, unspecified; G47.33 Obstructive sleep apnea (adult) (pediatric); B95.62 Methicillin resistant Staphylococcus aureus infection as the cause of diseases classified elsewhere; I10 Essential (primary) hypertension; I25.10 Atherosclerotic heart disease of native coronary artery without angina pectoris; Z90.2 Acquired absence of lung [part of]; Z79.890 Hormone replacement therapy; Z79.899 Other long term (current) drug therapy; Z79.82 Long term (current) use of aspirin; Z85.118 Personal history of other malignant neoplasm of bronchus and lung; Z85.820 Personal history of malignant melanoma of skin; Z92.21 Personal history of antineoplastic chemotherapy
CPT/HCPCS: 73130; 73223; 80048; 80053; 83735; 85025; 85027; 87070; 87075; 87147; 87186; 87205; 90715; 96365; 96366; 99285; A9575